=== PATIENT | female | born 1995 | race Caucasian/White ===

== ENCOUNTER 2017-12-01 14:37 | Emergency (ER) | payer BC ==
[2017-12-01 15:01] VITALS: BP 126/63
--- NOTE | 2017-12-01 15:26 | UC ---
Complaint Female HPI - HPI Summary HPI Summary: 22-year-old female who awoke during the night last night reporting onset of dysuria, frequency, and urgency. She denies any fevers, chills, back or flank pain, abdominal pain, nausea, vomiting, foul smelling urine, hematuria, or vaginal discharge. She has taken 2 doses of [id number] Azo. She does have the Mirena and typically only has some mild spotting with her menses. Monogamous relationship with a male partner. Denies use of any other contraceptive measures. - History Of Current Complaint Chief Complaint: UCGU Stated Complaint: URINARY Time Seen by Provider: 12/01/17 15:14 Hx Obtained From: Patient Hx Last Menstrual Period: 11/17/17 Onset/Duration: Sudden Onset Timing: Constant Severity Initially: Mild Severity Currently: Mild Pain Intensity: 0 Character: Burning Aggravating Factor(s): Urination Alleviating Factor(s): Other Associated Signs And Symptoms: Positive: Negative - Ndqp-[id number] Azo - Risk Factors Ectopic Risk Factor: IUD Use - Allergies/Home Medications Allergies/Adverse Reactions: Allergies Allergy/AdvReac Type Severity Reaction Status Date / Time No Known Allergies Allergy Verified 12/01/17 14:57 Home Medications: Home Medications Fluticasone-Salmeterol 100-50* [Advair Diskus 100-50*] 2 puff BID 12/01/17 [ History Confirmed 12/01/17] PMH/Surg Hx/FS Hx/Imm Hx - Additional Past Medical History Additional PMH: Noncontributory Previously Healthy: Yes - Surgical History Surgical History: None - Family History Known Family History: Positive: Other - Social History Occupation: Student Lives: With Family Alcohol Use: Occasionally Substance Use Type: None Smoking Status (MU): Never Smoked Tobacco - Immunization History Most Recent Tetanus Shot: UTD Review of Systems Constitutional: Negative Gastrointestinal: Negative Genitourinary: Dysuria, Frequency, Urgency Is Patient Immunocompromised?: No All Other Systems Reviewed And Are Negative: Yes Physical Exam Triage Information Reviewed: Yes Appearance: Well-Appearing, No Pain Distress, Well-Nourished Vital Signs: Initial Vital Signs Temp 97.9 F 12/01/17 14:58 Pulse 89 12/01/17 14:58 Resp 16 12/01/17 14:58 BP 126/63 12/01/17 14:58 Pulse Ox 100 12/01/17 14:58 Vital Signs Reviewed: Yes Respiratory: Positive: No respiratory distress Abdomen Description: Positive: Nontender, Soft. Negative: CVA Tenderness (R), CVA Tenderness (L) Bowel Sounds: Positive: Present Skin Exam: Normal Complaint Female Dx - Course Course Of Treatment: 22-year-old female with an onset of UTI symptoms last night. She has taken 2 doses of Azo since the onset of symptoms therefore we are unable to run a point of care urinalysis. She is nontoxic in appearance therefore we will treat empirically with Bactrim DS twice a day 5 days. A urine culture has been ordered and sent. - Differential Dx/Diagnosis Provider Diagnoses: Acute cystitis Discharge - Sign-Out/Discharge Documenting (check all that apply): Patient Departure - Discharge Plan Condition: Stable Disposition: HOME Prescriptions: Sulfamethox/Trimethoprim DS* [Bactrim DS 800/160 TAB*] 1 tab PO BID #10 tab Patient Education Materials: Urinary Tract Infection in Women (ED) Referrals: Mercedez Morgan MD [Primary Care Provider] - If Needed (If symptoms do not improve) Additional Instructions: A urine culture was sent today to see if bacteria grow out and to make sure that it is so it is sensitive to the antibiotic you were prescribed. Typically takes 48-72 hours to get these results. We will contact you if there are any problems. Start Bactrim DS 1 tab twice a day for the next 5 days. Drink plenty of fluids. In order to help prevent urinary tract infections in the future be sure to wipe from front to back and urinate immediately after intercourse. You may continue to take the wcpe-ots-[id number] Azo for the next 2 days to help with the discomfort. Do not take for more than 2 days as this may mask signs of an untreated infection. Follow-up with your primary care provider if there is no improvement in your symptoms after completing treatment. - Billing Disposition and Condition Condition: STABLE Disposition: Home
--- NOTE | 2017-12-03 08:19 | UC ---
- Progress Note Progress Note: culture is negative. she is on bactrim. had taken azo. clinically sx are c/w UTI and would adv to continue. Discharge - Sign-Out/Discharge Documenting (check all that apply): Post-Discharge Follow Up - Discharge Plan Condition: Stable Disposition: HOME Prescriptions: Sulfamethox/Trimethoprim DS* [Bactrim DS 800/160 TAB*] 1 tab PO BID #10 tab Patient Education Materials: Urinary Tract Infection in Women (ED) Referrals: Mercedez Morgan MD [Primary Care Provider] - If Needed (If symptoms do not improve) Additional Instructions: A urine culture was sent today to see if bacteria grow out and to make sure that it is so it is sensitive to the antibiotic you were prescribed. Typically takes 48-72 hours to get these results. We will contact you if there are any problems. Start Bactrim DS 1 tab twice a day for the next 5 days. Drink plenty of fluids. In order to help prevent urinary tract infections in the future be sure to wipe from front to back and urinate immediately after intercourse. You may continue to take the [id number]-[id number] Azo for the next 2 days to help with the discomfort. Do not take for more than 2 days as this may mask signs of an untreated infection. Follow-up with your primary care provider if there is no improvement in your symptoms after completing treatment. - Billing Disposition and Condition Condition: STABLE Disposition: Home
== END 2017-12-01 16:05 | disposition home or self-care (01) ==
LOC: UCCORT 14:37
DX: N30.00 Acute cystitis without hematuria (principal)
CPT/HCPCS: 81025; 87086; 99212; G0463

== ENCOUNTER 2019-04-29 12:22 | Emergency (ER) | payer BC ==
[2019-04-29 13:58] VITALS: BP 125/67
--- NOTE | 2019-04-29 14:12 | UC ---
Complaint Female HPI - HPI Summary HPI Summary: C/O 2 day history of UTI symptoms with frequency urgency and dysuria. - History Of Current Complaint Chief Complaint: UCGU Stated Complaint: URINARY Hx Obtained From: Patient Hx Last Menstrual Period: "the end of March, right around [place]" ?: No Onset/Duration: Gradual Onset, Lasting Days - 2, Still Present Timing: Constant Severity Initially: Mild Severity Currently: Mild Pain Intensity: 0 Character: Burning, Cramping Aggravating Factor(s): Urination Alleviating Factor(s): Meds - azo Associated Signs And Symptoms: Positive: Negative - Allergies/Home Medications Allergies/Adverse Reactions: Allergies Allergy/AdvReac Type Severity Reaction Status Date / Time No Known Allergies Allergy Verified 04/29/19 13:54 Home Medications: Home Medications Norethindr/Eth Estradiol(Nf) [Lo Loestrin Fe (NF)] 1 tab PO DAILY 04/29/19 [ History Confirmed 04/29/19] Phenazopyridine HCl [Urinary Pain Relief] 95 mg PO Q8H PRN 04/29/19 [History Confirmed 04/29/19] PMH/Surg Hx/FS Hx/Imm Hx Respiratory History: Asthma - Surgical History Surgical History: None - Family History Known Family History: Positive: Cardiac Disease, Hypertension, Diabetes, Other Negative: Respiratory Disease - Social History Occupation: Employed Full-time Lives: With Family Alcohol Use: None Substance Use Type: None Smoking Status (MU): Never Smoked Tobacco - Immunization History Most Recent Tetanus Shot: UTD Review of Systems All Other Systems Reviewed And Are Negative: Yes Genitourinary: Positive: Dysuria, Frequency, Urgency Physical Exam Triage Information Reviewed: Yes Appearance: Well-Appearing, No Pain Distress, Well-Nourished Vital Signs: Initial Vital Signs Temp 97.8 F 04/29/19 13:52 Pulse 95 04/29/19 13:52 Resp 16 04/29/19 13:52 BP 125/67 04/29/19 13:52 Pulse Ox 98 04/29/19 13:52 Vital Signs Reviewed: Yes Eyes: Positive: Conjunctiva Clear Neck exam: Normal Respiratory Exam: Normal Cardiovascular Exam: Normal Abdomen Description: Positive: Nontender, No Organomegaly, Soft. Negative: CVA Tenderness (R), CVA Tenderness (L) Bowel Sounds: Positive: Present Musculoskeletal Exam: Normal Neurological Exam: Normal Psychological Exam: Normal Skin Exam: Normal Complaint Female Dx - Differential Dx/Diagnosis Differential Diagnosis/HQI/PQRI: Appendicitis, Ovarian Cyst, Urinary Tract Infection Provider Diagnosis: Cystitis Discharge ED - Sign-Out/Discharge Documenting (check all that apply): Patient Departure All imaging exams completed and their final reports reviewed: No Studies - Discharge Plan Condition: Stable Disposition: HOME Prescriptions: Nitrofurantoin Monohyd/M-Cryst [Macrobid 100 mg Capsule] 100 mg PO BID #14 cap Patient Education Materials: Urinary Tract Infection in Women (ED) Referrals: Mercedez Morgan MD [Primary Care Provider] - - Billing Disposition and Condition Condition: STABLE Disposition: Home
== END 2019-04-29 14:21 | disposition home or self-care (01) ==
LOC: UCCORT 12:22
DX: N30.90 Cystitis, unspecified without hematuria (principal); J45.909 Unspecified asthma, uncomplicated
CPT/HCPCS: 87086; 99212; G0463